=== PATIENT | female | born 1985 | race Caucasian/White ===

== ENCOUNTER 2022-10-29 17:30 | Observation (INO) | payer MEDICAID, SELFPAY ==
[2022-10-29] VITALS (55 sets, daily range): BP systolic 150–213; BP diastolic 98–143; PULSE 65–120; RESP 8–33; TEMP 36.5; O2SAT 94–100; BMI 28.3; BMI 30.4
--- NOTE | 2022-10-29 17:46 | ECG_ITS ---
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
--- NOTE | 2022-10-29 17:50 | ED.NECK1 ---
HPI - Neck Pain/Injury General Chief Complaint: Neck Pain/Injury Stated Complaint: NECK PAIN Time Seen by Provider: 10/29/22 17:35 Source: patient Mode of arrival: walk-in Limitations: no limitations History of Present Illness HPI Narrative: 37-year-old female presents for neck pain. She's had it for about two weeks and there was no injury or unusual activity. Her blood pressure has been running high and her dose of metoprolol has recently been increased. She was seen at another hospital's emergency department a few days ago for the neck pain and she states they gave her a shot of Toradol and discharged her. She reports they did not do any imaging. She has not had a fever or localized weakness. She has no history of neck injury in the past. The pain is moderate much worse when she moves it. Related Data Allergies Allergy/AdvReac Type Severity Reaction Status Date / Time codeine AdvReac Mild Rash Verified 10/29/22 17:41 Review of Systems ROS Narrative A ten point review of systems is negative except as noted above. Exam Narrative Exam Narrative: Nurses note and vital signs reviewed and patient is not hypoxic. General: The patient appears well and in no apparent distress. Skin: Warm, dry, no pallor noted. There is no rash noted. Head: Normocephalic, atraumatic; she is reluctant to turn her head, there is no mass or erythema or bruising in her neck Eye: Normal conjunctiva, no drainage Ears, Nose, Mouth, and Throat: oral mucosa is moist. Nares patent. Cardiovascular: Regular Rate and Rhythm Respiratory: Patient is in no distress, no accessory muscle use, lungs are clear to auscultation, no wheezing, rales or rhonchi Back: non-tender GI: soft and nontender Musculoskeletal: The patient has no evidence of calf tenderness, no pitting edema, symmetrical pulses noted bilaterally Neurological: A&O x4, normal speech; upper and lower extremity strength five out five and symmetric Psychiatric: Cooperative Constitutional Vital Signs, click to edit/add: Last Vital Signs Temp 97.7 F 10/29/22 17:36 Pulse 74 10/29/22 18:40 Resp 23 10/29/22 18:40 BP 169/100 H 10/29/22 18:43 Pulse Ox 100 10/29/22 18:40 O2 Del Method Room Air 10/29/22 17:36 Course Vital Signs Vital signs: Vital Signs Temperature 97.7 F 10/29/22 17:36 Pulse Rate 92 H 10/29/22 17:36 Respiratory Rate 18 10/29/22 17:36 Blood Pressure 179/116 H 10/29/22 17:36 Pulse Oximetry 100 10/29/22 17:36 Oxygen Delivery Method Room Air 10/29/22 17:36 Temperature 97.7 F 10/29/22 17:36 Pulse Rate 74 10/29/22 18:40 Respiratory Rate 23 10/29/22 18:40 Blood Pressure 169/100 H 10/29/22 18:43 Pulse Oximetry 100 10/29/22 18:40 Oxygen Delivery Method Room Air 10/29/22 17:36 MDM - Neck Pain/Injury MDM Narrative Medical decision making narrative: tests are ordered and the patient is signed out to Dr. Lopez. Differential Diagnosis Differential diagnosis: Likely torticollis, cervical spondylosis and strain of neck muscle Lab Data Labs: Lab Results 10/29/22 Range/Units 17:53 WBC 8.6 (4.0-11.0) 10^3/uL RBC 5.45 H (4.20-5.40) 10^6/uL Hgb 15.2 (12.0-16.0) g/dL Hct 46.3 (36.0-48.0) % MCV 85.0 (81.0-99.0) fL MCH 27.9 (26.7-34.0) pg MCHC 32.8 (29.9-35.2) g/dL RDW 14.6 (11.0-15.0) % Plt Count 268 (150-450) 10^3/uL MPV 10.7 (9.5-13.5) fL Neut % (Auto) 53.0 (43.0-75.0) % Lymph % (Auto) 38.1 (20.5-60.0) % [place] % (Auto) 5.5 (1.7-12.0) % Eos % (Auto) 2.5 (0.9-7.0) % Baso % (Auto) 0.5 (0.2-2.0) % Neut # (Auto) 4.5 (1.4-6.5) 10^3/uL Lymph # (Auto) 3.3 (1.2-3.8) 10^3/uL [place] # (Auto) 0.5 (0.3-0.8) 10^3/uL Eos # (Auto) 0.2 (0.0-0.7) 10^3/uL Baso # (Auto) 0.0 (0.0-0.1) 10^3/uL Abs Immat Gran (auto) 0.03 (0.00-0.03) 10^3/uL Imm/Tot Granulo (auto) 0.4 (0.0-0.5) % Sodium 139 (136-145) mmol/L Potassium 3.3 L (3.5-5.1) mmol/L Chloride 102 (98-107) mmol/L Carbon Dioxide 23.2 (21.0-32.0) mmol/L Anion Gap 17.1 BUN 10.0 (7.0-18.0) mg/dL Creatinine 0.76 (0.55-1.02) mg/dL Est GFR ( Amer) >60 (>=60) Est GFR (Non-Af Amer) >60 (>=60) BUN/Creatinine Ratio 13.2 Glucose 98 (74-106) mg/dL Calcium 9.1 (8.5-10.1) mg/dL ECG Data Attestation: I personally reviewed and interpreted this ECG as follows: (EKG on my interpretation shows normal sinus rhythm without acute change in a rate of 87.) Discharge Plan Discharge Chief Complaint: Neck Pain/Injury Clinical Impression: Acute neck pain Patient Disposition: Still a Patient Referrals: Physician,Non-Staff, MD [Primary Care Provider] - 1 week
[2022-10-29] MEDS: KETOROLAC TROMETHAMINE 30 MG/ML VIAL IVP (18:04)
[2022-10-29] MEDS: ORPHENADRINE 60 MG/ 2 ML VIAL IV (18:04)
[2022-10-29 18:14] LABS: Basophils Percent Auto 0.5 % (0.2-2.0); Eosinophils Absolute Auto 0.2 10^3/uL (0.0-0.7); Eosinophils Percent Auto 2.5 % (0.9-7.0); Hematocrit 46.3 % (36.0-48.0); Hemoglobin 15.2 g/dL (12.0-16.0); Immature Granulocytes Abs Auto 0.03 10^3/uL (0.00-0.03); Immature Granulocytes Pct Auto 0.4 % (0.0-0.5); Lymphocytes Absolute Auto 3.3 10^3/uL (1.2-3.8); Lymphocytes Percent Auto 38.1 % (20.5-60.0); Mean Corpuscular HGB Conc 32.8 g/dL (29.9-35.2); Mean Corpuscular Hemoglobin 27.9 pg (26.7-34.0); Mean Platelet Volume 10.7 fL (9.5-13.5); Monocytes Absolute Auto 0.5 10^3/uL (0.3-0.8); Monocytes Percent Auto 5.5 % (1.7-12.0); Neutrophils Absolute Auto 4.5 10^3/uL (1.4-6.5); Platelet Count 268 10^3/uL (150-450); Red Blood Count 5.45 10^6/uL (4.20-5.40); Red Cell Distribution Width 14.6 % (11.0-15.0); White Blood Count 8.6 10^3/uL (4.0-11.0)
[2022-10-29 18:26] LABS: Anion Gap 17.1; BUN Creatinine Ratio 13.2; Calcium 9.1 mg/dL (8.5-10.1); Carbon Dioxide 23.2 mmol/L (21.0-32.0); Chloride 102 mmol/L (98-107); Estimated GFR (African America >60 (>=60); Estimated GFR (Non-African Ame >60 (>=60); Glucose 98 mg/dL (74-106); Potassium 3.3 mmol/L (3.5-5.1); Sodium 139 mmol/L (136-145)
--- NOTE | 2022-10-29 18:53 | XR_ITS ---
The [place] [id number] Patient Name: KYRIE OCONNOR MRN: [id number] date: 1985 Sex: F Assigned Patient Location: ER Current Patient Location: ER Accession/Order Number: [id number] Exam Date: 10/29/2022 19:15 Report Date: 10/29/2022 19:50 At the request of: STEPHON REYES Procedure: XR cervical spine 2-3V EXAM: XR cervical spine 2-3V HISTORY: Atraumatic pain COMPARISON: None. TECHNIQUE: 3 views FINDINGS: IMPRESSION: Straightening of the normal cervical lordosis. Vertebral body heights and alignments exhibit no fracture or listhesis. Intervertebral disc spaces, endplates and uncovertebral joints are unremarkable for patient's age. No gross facet arthrosis. The dens and lateral masses of C1 are symmetric. No prevertebral soft tissue edema. Electronically authenticated by: CHRISTIAN MCNALLY Date: 10/29/2022 19:50
[2022-10-29] MEDS: MORPHINE SULFATE 4 MG/ML VIAL IV ×2 (18:56→20:06)
--- NOTE | 2022-10-29 19:55 | CT_ITS ---
The [address] [address] Patient Name: KYRIE OCONNOR MRN: [id number] date: 1985 Sex: F Assigned Patient Location: ER Current Patient Location: ER Accession/Order Number: [id number] Exam Date: 10/29/2022 22:23 Report Date: 10/29/2022 21:36 At the request of: MARCY WADDELL Procedure: CT angio neck CT angio head, CT angio neck HISTORY: neck pain and headache TECHNIQUE: CTA head and neck. Post-processed images {Maximum intensity Projection (MIP), Volume-rendered (VR), or Surface shaded display images (SSD)} were created, reviewed and archived. All CT scans at this facility use dose modulation, iterative reconstruction, and/or weight based dosing when appropriate to reduce radiation dose to as low as reasonably achievable. Contrast: IV administration of 100 cc Omnipaque 350 COMPARISON: CT brain 10/23/2022 RESULT: NECK: Soft tissues: Within normal limits. Spine: Alignment is normal. No significant degenerative changes are present. Lungs: The imaged lungs are clear. CT ARTERIOGRAM: EXTRACRANIAL CIRCULATION: Aortic arch and branch vessels: Conventional 3-vessel arch branch anatomy. No significant stenosis in the proximal brachiocephalic vessels. Carotid Stenosis: Right Common: No significant stenosis. Right Internal Carotid Plaque: No significant plaque formation. Right Internal Carotid Stenosis (% by NASCET Criteria): 0% Left Common: No significant stenosis. Left Internal Carotid Plaque: No significant plaque formation. Left Internal Carotid Stenosis (% by NASCET Criteria): 0% Cervical Vertebral Arteries: Patency: Bilateral Dominance: Codominant INTRACRANIAL CIRCULATION: Anterior circulation: Distal ICAs, ACAs and MCAs are normal in caliber. A1 segments are codominant. Posterior circulation: Distal vertebral arteries, basilar trunk and rn building are normal in caliber. Proximal SCAs, AICAs and PICAs are patent. No vessel cut off, filling defect, significant focal narrowing or evidence of aneurysm. Opacified dural venous sinuses and major deep and superficial draining veins are patent. CT/CT angio neck IMPRESSION: No large vessel occlusion or high-grade stenosis in the head or neck. Electronically authenticated by: MAN MENESES Date: 10/29/2022 21:36
--- NOTE | 2022-10-29 19:55 | CT_ITS ---
The [address] [address] Patient Name: KYRIE OCONNOR MRN: [id number] date: 1985 Sex: F Assigned Patient Location: ER Current Patient Location: ER Accession/Order Number: [id number] Exam Date: 10/29/2022 22:23 Report Date: 10/29/2022 21:36 At the request of: MARCY WADDELL Procedure: CT angio head CT angio head, CT angio neck HISTORY: neck pain and headache TECHNIQUE: CTA head and neck. Post-processed images {Maximum intensity Projection (MIP), Volume-rendered (VR), or Surface shaded display images (SSD)} were created, reviewed and archived. All CT scans at this facility use dose modulation, iterative reconstruction, and/or weight based dosing when appropriate to reduce radiation dose to as low as reasonably achievable. Contrast: IV administration of 100 cc Omnipaque 350 COMPARISON: CT brain 10/23/2022 RESULT: NECK: Soft tissues: Within normal limits. Spine: Alignment is normal. No significant degenerative changes are present. Lungs: The imaged lungs are clear. CT ARTERIOGRAM: EXTRACRANIAL CIRCULATION: Aortic arch and branch vessels: Conventional 3-vessel arch branch anatomy. No significant stenosis in the proximal brachiocephalic vessels. Carotid Stenosis: Right Common: No significant stenosis. Right Internal Carotid Plaque: No significant plaque formation. Right Internal Carotid Stenosis (% by NASCET Criteria): 0% Left Common: No significant stenosis. Left Internal Carotid Plaque: No significant plaque formation. Left Internal Carotid Stenosis (% by NASCET Criteria): 0% Cervical Vertebral Arteries: Patency: Bilateral Dominance: Codominant INTRACRANIAL CIRCULATION: Anterior circulation: Distal ICAs, ACAs and MCAs are normal in caliber. A1 segments are codominant. Posterior circulation: Distal vertebral arteries, basilar trunk and solar electric/photovoltaic installer are normal in caliber. Proximal SCAs, AICAs and PICAs are patent. No vessel cut off, filling defect, significant focal narrowing or evidence of aneurysm. Opacified dural venous sinuses and major deep and superficial draining veins are patent. CT/CT angio head IMPRESSION: No large vessel occlusion or high-grade stenosis in the head or neck. Electronically authenticated by: MAN MENESES Date: 10/29/2022 21:36
[2022-10-29] MEDS: METHYLPREDNISOLONE SOD SUCC PF 125 MG/2 ML VIAL IVP (20:06)
[2022-10-29] MEDS: HYDRALAZINE HCL 20 MG/ML VIAL 5 MG IVP ×2 (20:46→21:30)
[2022-10-29] MEDS: HYDROMORPHONE HCL 1 MG/ML CARTRIDGE 0.5 MG IVP (21:36)
[2022-10-29] MEDS: HYDROMORPHONE HCL 1 MG/ML CARTRIDGE IVP (23:13)
--- NOTE | 2022-10-29 23:22 | PC.NURSE ---
pt has no neuro deficits at this time. complains of left sided neck pain and hypertension.
[2022-10-29] MEDS: ASPIRIN 325 MG TABLET PO (23:41)
[2022-10-29] MEDS: CLOPIDOGREL BISULFATE 75 MG TABLET 300 MG PO (23:41)
[2022-10-30] VITALS (129 sets, daily range): BP systolic 120–189; BP diastolic 63–118; PULSE 76–130; RESP 2–28; TEMP 36.5–36.8; O2SAT 95–99
[2022-10-30] MEDS: LABETALOL HCL 20 MG/4 ML SYRINGE 10 MG IV (01:51)
--- NOTE | 2022-10-30 02:59 | W.PM.TELEPN ---
Progress Note: Subjective Subjective Interval history: CC: Left neck pain HPI: 37 year old female with history of migraine headaches, poorly controlled hypertension, who presents with 10 days of left sided neck pain. pain is constant, pressure in nature radiates to her occipitis region associated with nausea, occasional blurry vision, mild relief with Tylenol, ibuprofen. no previous episodes and started while she was sitting at work. her BP was checked and noted to be 226/118 and was sent home. she followed up with PCP and Lopressor increased to 100 mg BID with continued elevated BP and persistent symptoms so came to the ER for evaluation. ER Course: patient received IV Hydralazine, Morphine Dilaudid. Neurology consulted recommended MRA to better evaluate inconclusive CTA results of possible vertebral artery dissection. Allergies: NKDA Home medications: reviewed and reconciled in chart PMHx: HELLP syndrome, Hypertension, Migraines PSHx: None per patient FHx: Sister with unknown autoimmune disease SHx: denies alcohol, drug use, occasional Vape. with children ROS: negative except for HPI. PE: Vitals reviewed GEN: sitting up in bed, holding left neck with hand, in mild acute distress, appears Stated age HEENT: Normocephalic, atraumatic, EOMI, complains of neck pain with turning head to side CVS: RRR, No edema Lungs: normal respiratory effort GI: Soft, no visible masses Neuro: CN 2-12 intact, No focal deficits Psych: Good mood. Exam Constitutional Vital Signs, click to edit/add: Last Vital Signs Temp 97.7 F 10/30/22 00:05 Pulse 99 H 10/30/22 02:20 Resp 13 10/30/22 01:03 BP 157/101 H 10/30/22 01:57 Pulse Ox 97 10/30/22 00:06 O2 Del Method Room Air 10/30/22 00:06 Progress Note: Objective Labs Labs: Short CBC 10/29/22 Range/Units 17:53 WBC 8.6 (4.0-11.0) 10^3/uL Hgb 15.2 (12.0-16.0) g/dL Hct 46.3 (36.0-48.0) % Plt Count 268 (150-450) 10^3/uL BMP 10/29/22 17:53 Sodium 139 Potassium 3.3 L Chloride 102 Carbon Dioxide 23.2 BUN 10.0 Creatinine 0.76 Glucose 98 Calcium 9.1 Progress Note: A&P Assessment and Plan (1) Acute neck pain: (2) Accelerated hypertension: Plan 1. Intractable left neck pain rule out vertebral artery dissection 2. Accelerated hypertension 3. Migraine headaches - admit to telemetry, neuro checks - order home metoprolol with p.r.n. labetalol, start Norvasc, defer secondary hypertension workup morning team - neurology consulted in the ER reviewed CT scans and suggest MRA head and neck, aspirin Plavix for now and keep systolic BP below 180 - pain control DVT prophylaxis goals of care: Full code communications: Discussed with emergency room physician, bedside nurse, patient updated about plan of care, all questions answered to their satisfaction disposition: Home when medically stable as a provider of this telehealth evaluation, requested by the patient's evaluating physician, I attest that I introduced myself to the patient, provided my credentials and determined that telemedicine via a real-time 2 weight interactive audio and video platform as an appropriate and effective means of providing this service. I reviewed the patient's chart and had a discussion with the member of the patient's treatment team. The patient and I mutually agreed with continuation of this evaluation via telemedicine. The patient consented for the telemedicine evaluation. The nurse was present during the entire time of the encounter and was able to move the stethoscope in appropriate directions. The patient was evaluated at 0020 Telemedicine Attestation Telemedicine Attestation I conducted this encounter from [[place], [place]] via secure live, [id number] video conference with the patient, located at [facility] with [nursing team]. Prior to the interview, the risks and benefits of telemedicine were discussed with the patient and verbal consent was obtained.
[2022-10-30] MEDS: HEPARIN SODIUM (PORCINE) 5,000 UNIT/ML VIAL 5000 UNIT SUBQ ×3 (03:31→20:54)
[2022-10-30] MEDS: HYDROMORPHONE HCL 0.5 MG/0.5 ML SYRINGE IV ×6 (03:32→22:24)
[2022-10-30] MEDS: AMLODIPINE BESYLATE 5 MG TABLET 2.5 MG PO (04:27)
--- NOTE | 2022-10-30 06:54 | MR_ITS ---
The [address] [address] Patient Name: KYRIE OCONNOR MRN: [id number] date: 1985 Sex: F Assigned Patient Location: ICU Current Patient Location: ICU Accession/Order Number: [id number] Exam Date: 10/30/2022 08:05 Report Date: 10/30/2022 09:43 At the request of: SHAIKH LARRY Procedure: MR angio head wo con EXAM: MRA of the head and neck without IV gadolinium contrast. NASCET criteria were used when evaluating of the carotid arteries. Dose reduction technique used: Automated exposure control and/or adjustment of the mA and/or kV according to patient size and/or use of iterative reconstruction technique. REASON FOR EXAM: VERTEBRAL ARTERY DISSECTION COMPARISON: CT scan dated 10/29/2022 FINDINGS: Motion artifact degrades image quality and reduces sensitivity of the exam. MRA HEAD: No definite large vessel occlusion. Exam is otherwise limited by motion artifact. MRA NECK: Caliber irregularities in the vertebral arteries bilaterally at the C1 level seen on yesterday's CT angiogram are not well visualized on the current MR angiogram, although the current exam is degraded by motion artifact and these were better evaluated on yesterday's MRI. On the prior exam there are relatively symmetric abnormalities and no focal dissection flap visible. Bilateral vertebral, bilateral common carotid and bilateral internal carotid arteries are grossly patent without significant stenosis or aneurysm. Remainder unremarkable. MR/MR angio head wo con IMPRESSION: 1. Exam is limited by motion artifact. 2. Caliber irregularities of the vertebral arteries bilaterally at the C1 level. These are better evaluated on yesterday's CT angiogram. On the prior CT angiogram these were relatively symmetric and no discrete dissection flap is evident. Considerations include dissections are favored to be chronic versus is a congenital variant or changes of fibromuscular dysplasia. 3. No definite intracranial large vessel occlusion. Electronically authenticated by: JOSE TELLO Date: 10/30/2022 09:43
--- NOTE | 2022-10-30 06:54 | MR_ITS ---
The [address] [address] Patient Name: KYRIE OCONNOR MRN: [id number] date: 1985 Sex: F Assigned Patient Location: ICU Current Patient Location: ICU Accession/Order Number: [id number] Exam Date: 10/30/2022 08:05 Report Date: 10/30/2022 09:43 At the request of: SHAIKH LARRY Procedure: MR angio neck wo con EXAM: MRA of the head and neck without IV gadolinium contrast. NASCET criteria were used when evaluating of the carotid arteries. Dose reduction technique used: Automated exposure control and/or adjustment of the mA and/or kV according to patient size and/or use of iterative reconstruction technique. REASON FOR EXAM: VERTEBRAL ARTERY DISSECTION COMPARISON: CT scan dated 10/29/2022 FINDINGS: Motion artifact degrades image quality and reduces sensitivity of the exam. MRA HEAD: No definite large vessel occlusion. Exam is otherwise limited by motion artifact. MRA NECK: Caliber irregularities in the vertebral arteries bilaterally at the C1 level seen on yesterday's CT angiogram are not well visualized on the current MR angiogram, although the current exam is degraded by motion artifact and these were better evaluated on yesterday's MRI. On the prior exam there are relatively symmetric abnormalities and no focal dissection flap visible. Bilateral vertebral, bilateral common carotid and bilateral internal carotid arteries are grossly patent without significant stenosis or aneurysm. Remainder unremarkable. MR/MR angio neck wo con IMPRESSION: 1. Exam is limited by motion artifact. 2. Caliber irregularities of the vertebral arteries bilaterally at the C1 level. These are better evaluated on yesterday's CT angiogram. On the prior CT angiogram these were relatively symmetric and no discrete dissection flap is evident. Considerations include dissections are favored to be chronic versus is a congenital variant or changes of fibromuscular dysplasia. 3. No definite intracranial large vessel occlusion. Electronically authenticated by: JOSE TELLO Date: 10/30/2022 09:43
[2022-10-30] MEDS: MORPHINE SULFATE 2 MG/ML SYRINGE IV ×2 (07:33→11:29)
[2022-10-30] MEDS: HYDRALAZINE HCL 20 MG/ML VIAL 10 MG IVP (07:33)
[2022-10-30] MEDS: OXYCODONE HCL 5 MG TABLET PO ×4 (07:33→23:33)
[2022-10-30] MEDS: IBUPROFEN 600 MG TABLET PO ×2 (09:17→20:55)
[2022-10-30] MEDS: METOPROLOL TARTRATE 100 MG TABLET PO ×2 (09:17→20:55)
[2022-10-30] MEDS: AMLODIPINE BESYLATE 5 MG TABLET 10 MG PO (09:17)
[2022-10-30] MEDS: OMEPRAZOLE 40 MG CAPSULE.DR PO (09:17)
[2022-10-30] MEDS: ONDANSETRON PF 4 MG/2 ML VIAL IV (09:18)
--- NOTE | 2022-10-30 11:09 | P.HP_ITS ---
H&P: HPI History of Present Illness Chief complaint: Intractable neck pain Narrative: 37 y o female with hx of HTN presented last night with severe intractable neck pain that has been going on for over a week now. She reports being at work about a week ago and was sent home for accelerated hypertension (220/120) and nausea/vomiting that was sudden onset and without any preceding signs or symptoms. She woke up next morning with cervical neck that is persistent, severe 10/10, and even the slightest movement of her neck - exacerbates her pain. She denies prior hx of neck pain, trauma or neck surgery. She has hx of intermittent migraine LEA but her current neck pain is nothing like she has ever experienced in her life. She went to ED at [facility] and was discharged after XR of her neck and treatment with toradol and was asked to f/u with her PCP who increased her Lopressor for poorly controlled HTN when seen in office. Over past one week - she has noted her blood pressure has been fluctuating but usually above 200 and she has experienced intermittent tingling in her fingers b/l along with blurred vision. She currently has no neurological symptoms. SHe is in severe pain, and keeping her neck still to avoid experiencing any worsening of her already poorly controlled pain. Review of Systems ROS Status of ROS 10 or more systems reviewed and unremarkable except as noted in history and below [facility] Medical History (Updated 10/30/22 @ 11:19 by Shaikh Oscar MD) Surgical History Family History Grandmother Family history of cancer Father Family history of diabetes mellitus Other Family history of stroke Social History Within the past year, how often did you have a drink containing alcohol: monthly or less Smoking status: Current every day smoker What tobacco products do you use: cigarettes Pack-years instructions: Please document either packs per day or cigarettes per day in order for pack years to calculate correctly. If using both packs per day and cigarettes per day, please make sure that they denote the same thing. If they differ, pack- years will calculate based on packs per day. Packs Per Day Cigarettes Per Day 1/4 of a pack 5 1/2 a pack 10 3/4 of a pack 15 1 pack 20 1.5 pack 30 2 packs 40 2.5 packs 50 3 packs 60 Cigarettes per day: 8 Do you use any of these nicotine containing products: vaping products Non-prescribed substance use: denies use Previous occupational history: [employer] Highest level of school completed/degree received: high school graduate Are you now , , , , never or living with a partner: Meds Home Medications and Allergies Home Medications Medication Instructions Recorded Confirmed Type lidocaine 5 % topical patch 1 patch topical Q24H 10/29/22 10/29/22 History metoprolol tartrate 100 mg tablet 100 mg PO BID 10/29/22 10/29/22 History omeprazole 40 mg capsule,delayed 40 mg PO DAILY 10/29/22 10/29/22 History release rizatriptan 10 mg tablet 10 mg PO Q2H PRN migraine headache 10/29/22 10/29/22 History venlafaxine 37.5 mg 75 mg PO DAILY 10/29/22 10/29/22 History capsule,extended release 24 hr Allergies Allergy/AdvReac Type Severity Reaction Status Date / Time codeine AdvReac Mild Rash Verified 10/29/22 17:41 Exam Constitutional Vital Signs, click to edit/add: Last Vital Signs Temp 97.7 F 10/30/22 00:05 Pulse 112 H 10/30/22 10:00 Resp 16 10/30/22 07:43 BP 172/96 H 10/30/22 07:45 Pulse Ox 95 10/30/22 07:50 O2 Del Method Room Air 10/30/22 04:29 Documenting provider has reviewed patient's vital signs: yes Common normals: oriented x3 General appearance: cooperative and in distress [facility] Common normals: normocephalic and head/scalp atraumatic Head and scalp: normocephalic and atraumatic Eye Common normals: conjunctivae normal and no scleral icterus Conjunctiva: conjunctiva(e) normal Neck & C-Spine General: normal visual inspection Cervical spine: cervical ROM abnormal lateral flexion to the right decreased, lateral flexion to the left decreased, rotation to the left decreased, rotation to the right decreased and anterior flexion decreased and pain with cervical ROM with lateral flexion to the right, with lateral flexion to the left, with rotation to the right, with rotation to the left, with anterior flexion and with extension Respiratory Common normals: normal respiratory effort and clear to auscultation bilaterally Effort & inspection: able to speak in complete sentences Auscultation: clear to auscultation bilaterally Cardio Common normals: regular rate, S1 normal heart sound and S2 normal heart sound Rate: regular rate Heart sounds: S1 normal and S2 normal GI Common normals: Normal to inspection, nondistended, normoactive bowel sounds present, soft to palpation, non-tender and no hepatosplenomegaly Palpation: soft and no hepatosplenomegaly Extremity Common normals: no clubbing, cyanosis or edema Neuro Common normals: oriented x3, moves all extremities and no focal motor deficits Meningeal signs: nuccal rigidity Speech: speech normal Gait (neuro): normal gait Motor exam: strength 5/5 throughout Psych Common normals: mental status grossly normal, denies hallucinations, denies homicidal ideation and denies suicidal ideation Results Labs Labs: Short CBC 10/29/22 Range/Units 17:53 WBC 8.6 (4.0-11.0) 10^3/uL Hgb 15.2 (12.0-16.0) g/dL Hct 46.3 (36.0-48.0) % Plt Count 268 (150-450) 10^3/uL BMP 10/29/22 17:53 Sodium 139 Potassium 3.3 L Chloride 102 Carbon Dioxide 23.2 BUN 10.0 Creatinine 0.76 Glucose 98 Calcium 9.1 Assessment and Plan Assessment and Plan (1) Hypertensive emergency: Assessment and Plan: P/w HTN emergency - BP still above goal after addition of amlodipine and losartan and she has required multiple IV hydralazine and labetalol boluses. Will start on IV cardene drip - Goal to keep BP less than 140/80 D/w Tele stroke. Neuro checks q2 CT head - no bleeding or evidence of stroke (2) Vertebral artery dissection: Assessment and Plan: Severe persistent neck pain with accelerated HTN - possible b/l vertebral artery dissection on CTA and then an MRA Awaiting final recommendations from tele stroke who will evaluate the patient after reviewing images. On ASA, Plavix as per stroke. C/w same Plan Patient changed to inpatient status as continues to have accelerated hypertension and will now be on continuous IV infusion to manage her BP. High level of care, with Q2 neuro checks, close hemodynamic monitoring while on IV Cardene. Critical care time spent over 60 minutes on this patient encounter that involved patients assessment, reviewing her medical hx and chart, co ordination of her care with more than 50% time spent on face 2 face evaluation.
--- NOTE | 2022-10-30 11:28 | CA_ITS ---
Patient: KYRIE OCONNOR Exam Date: 10/30/2022 : 1985 Gender:F Ordering : SHAIKH Michel JUAREZ . Admission #: [id number] Family : TOSHA GALEAS Order #: [id number] CLICK HERE TO VIEW EXAM ECHOCARDIOGRAM REPORT PROCEDURE: CA ECHO DOPPLER COMPLETE INDICATIONS: HTN emergency COMPARISON: None. DESCRIPTION: COMPLETE ECHOCARDIOGRAM Real-time transthoracic echocardiography with 2D, M-mode, spectral and color flow Doppler performed. QUALITY: Technical quality was good. LEFT VENTRICLE: Normal chamber size. Moderate concentric left ventricular hypertrophy. LV EF: Global left ventricular systolic function is hyperdynamic; visually estimated ejection fraction is 65 to 70%. No regional wall motion abnormalities. DIASTOLIC: Normal diastolic function. ATRIAL SEPTUM: Inadequately seen. LEFT ATRIUM: Normal chamber size. RIGHT ATRIUM: Normal chamber size. RIGHT VENTRICLE: Normal chamber size. Normal right ventricular systolic function. TRICUSPID VALVE: Normal mobility and thickness. No stenosis with trivial regurgitation. No evidence of pulmonary hypertension. RVSP 14mmHg MITRAL VALVE: Normal mobility and thickness. No evidence of mitral valve stenosis. There is no mitral annular calcification. No mitral regurgitation. AORTIC VALVE: Normal trileaflet appearance. No visible sclerosis. Normal leaflet mobility. No evidence of aortic valve stenosis. No aortic regurgitation. AORTIC ROOT: Normal diameter and appearance. PULMONIC VALVE: Normal thickness and mobility. No stenosis. No regurgitation. PERICARDIUM: No evidence of pericardial effusion. IVC: Collapses with inspirations. Normal size. CONCLUSION: 1. Global left ventricular systolic function is hyperdynamic; visually estimated ejection fraction 65 to 70% 2. Moderately increased left ventricular wall thickness 3. The right ventricle is normal in size and systolic function 4. No significant valvular abnormalities Adult Echocardiography Procedure Report Left Ventricle LVEDD (3.7 - 5.6 cm): 4.27 cm LVESD (2.2 - 4.0 cm): 2.62 cm LVIVS thickness (0.6 - 1.2 cm): 1.37 cm LVPW thickness (0.5 - 1.0 cm): 1.21 cm e': 0.11 m/s E - e': 8.84 LVOT Max Gradient: 7.03 mm[Hg], 6.61 mm[Hg] LVOT Area (cm2): 1.31 m/s Peak Velocity (LVOT): 1.33 m/s, 1.29 m/s Mean Velocity (LVOT): 0.95 m/s LVOT Diameter 1.89 cm Left Ventricular Ejection Fraction: 70.68 % Left Atrium LA Volume Index (2D A2C): 34.70 ml/m2 Left Atrium Systolic Dimension: 3.45 cm Mitral Valve MV E to A Ratio: 0.91 Mitral Valve A-Wave Peak Velocity: 1.02 m/s Mitral Valve E-Wave Peak Velocity: 0.93 m/s Right Ventricle RV Internal Diastolic Dimension: 2.78 cm Aorta AO Root Diam: 2.75 cm Ascending Ao Diam: 2.56 cm Aortic Valve AoV Area (Peak Rojas): 2.11 cm2, 2.12 cm2, 2.11 cm2 AoV Area (VTI): 1.87 cm2, 1.87 cm2, 1.88 cm2 Peak Velocity(Antegrade Flow): 1.76 m/s, 1.72 m/s Peak Gradient(Antegrade Flow): 12.33 mm[Hg], 11.77 mm[Hg] Mean Velocity(Antegrade Flow): 1.25 m/s, 1.24 m/s Mean Gradient(Antegrade Flow): 7.13 mm[Hg], 7.04 mm[Hg] Velocity Time Integral: 34.22 cm, 33.24 cm Tricuspid Valve Peak Velocity (Regurgitant Flow): 1.63 m/s, 1.51 m/s Pulmonic Valve Mean Gradient: 3.56 mm[Hg], 2.97 mm[Hg], 2.93 mm[Hg] Mean Velocity: 0.90 m/s, 0.82 m/s, 0.79 m/s Peak Velocity: 1.13 m/s Peak Gradient: 5.31 mm[Hg], 4.74 mm[Hg], 5.31 mm[Hg] Right Atrium Right Atrium Systolic Pressure: 18.76 ml, 18.76 ml Dictated by: Elisabeth Simeon M.D. on 10/31/2022 at 16:44 Approved by: Elisabeth Simeon M.D. on 10/31/2022 at 16:47
[2022-10-30] MEDS: LOSARTAN POTASSIUM 50 MG TABLET 100 MG PO (11:29)
[2022-10-30] MEDS: NICARDIPINE IN NACL, ISO-OSM 40 MG/200 ML PIGGYBACK 25 MG IV (11:38)
--- NOTE | 2022-10-30 11:55 | CM.NOTE ---
Rounds made with Dr. Moore, he will speak with neurologist to determine plan of care for pt. Discussed with pt MRI results and treating BP.
[2022-10-30] MEDS: HYDROCHLOROTHIAZIDE 25 MG TABLET PO (16:43)
[2022-10-30] MEDS: NICARDIPINE IN NACL, ISO-OSM 40 MG/200 ML PIGGYBACK 37.5 MG IV (16:50)
[2022-10-30] MEDS: LORAZEPAM 0.5 MG TABLET PO (20:56)
[2022-10-30] MEDS: BACLOFEN 10 MG TABLET PO (22:23)
[2022-10-31] VITALS (52 sets, daily range): BP systolic 113–145; BP diastolic 70–90; PULSE 69–114; RESP 2–20; TEMP 36.6–36.9; O2SAT 94–97
[2022-10-31] MEDS: NICARDIPINE IN NACL, ISO-OSM 40 MG/200 ML PIGGYBACK 25 MG IV (00:28)
[2022-10-31] MEDS: OXYCODONE HCL 5 MG TABLET PO ×2 (03:56→08:42)
[2022-10-31] MEDS: HEPARIN SODIUM (PORCINE) 5,000 UNIT/ML VIAL 5000 UNIT SUBQ (04:09)
[2022-10-31] MEDS: LIDOCAINE 5% PATCH 1 PATCH TOPICAL (04:10)
[2022-10-31] MEDS: DOCUSATE SODIUM 100 MG CAPSULE PO (04:12)
[2022-10-31] MEDS: ONDANSETRON PF 4 MG/2 ML VIAL IV (05:17)
[2022-10-31] MEDS: HYDROMORPHONE HCL 0.5 MG/0.5 ML SYRINGE IV (05:17)
[2022-10-31] MEDS: BACLOFEN 10 MG TABLET PO (05:17)
[2022-10-31 05:36] LABS: Basophils Percent Auto 0.2 % (0.2-2.0); Eosinophils Absolute Auto 0.1 10^3/uL (0.0-0.7); Hematocrit 42.5 % (36.0-48.0); Immature Granulocytes Abs Auto 0.04 10^3/uL (0.00-0.03); Immature Granulocytes Pct Auto 0.4 % (0.0-0.5); Lymphocytes Percent Auto 28.6 % (20.5-60.0); Mean Corpuscular HGB Conc 32.9 g/dL (29.9-35.2); Mean Corpuscular Hemoglobin 28.5 pg (26.7-34.0); Mean Corpuscular Volume 86.4 fL (81.0-99.0); Mean Platelet Volume 10.6 fL (9.5-13.5); Monocytes Absolute Auto 0.7 10^3/uL (0.3-0.8); Monocytes Percent Auto 6.5 % (1.7-12.0); Neutrophils Absolute Auto 6.7 10^3/uL (1.4-6.5); Neutrophils Percent Auto 63.3 % (43.0-75.0); Platelet Count 234 10^3/uL (150-450); Red Blood Count 4.92 10^6/uL (4.20-5.40); Red Cell Distribution Width 15.4 % (11.0-15.0); White Blood Count 10.5 10^3/uL (4.0-11.0)
[2022-10-31 06:05] LABS: Alanine Aminotransferase 21 U/L (14-59); Albumin Globulin Ratio 1.4; Albumin Level 4.1 g/dL (3.4-5.0); Alkaline Phosphatase 58 U/L (46-116); Anion Gap 11.5; Aspartate Amino Transferase 6 U/L (15-37); BUN Creatinine Ratio 18.4; Bilirubin Total 0.4 mg/dL (0.2-1.0); Calcium 8.9 mg/dL (8.5-10.1); Carbon Dioxide 26.7 mmol/L (21.0-32.0); Chloride 101 mmol/L (98-107); Estimated GFR (African America >60 (>=60); Estimated GFR (Non-African Ame >60 (>=60); Glucose 103 mg/dL (74-106); Potassium 3.2 mmol/L (3.5-5.1); Sodium 136 mmol/L (136-145); Total Protein 7.1 g/dL (6.4-8.2)
[2022-10-31] MEDS: POTASSIUM CHLORIDE 10 MEQ ER TABLET 40 MEQ PO (08:33)
[2022-10-31] MEDS: AMLODIPINE BESYLATE 5 MG TABLET 10 MG PO (08:34)
[2022-10-31] MEDS: OMEPRAZOLE 40 MG CAPSULE.DR PO (08:34)
[2022-10-31] MEDS: HYDROCHLOROTHIAZIDE 25 MG TABLET PO (08:34)
[2022-10-31] MEDS: METOPROLOL TARTRATE 100 MG TABLET PO (08:34)
[2022-10-31] MEDS: LOSARTAN POTASSIUM 50 MG TABLET 100 MG PO (08:35)
[2022-10-31] MEDS: IBUPROFEN 600 MG TABLET PO (08:43)
--- NOTE | 2022-10-31 10:35 | P.DS_ITS ---
DS: Providers Provider Date of admission: 10/30/22 10:30 Primary care physician: Non-Staff Physician, Consults: 10/30/22 06:56 Consult to Telestroke Routine Consulting Provider: QUIRINO CRABTREE Reason for consultation: Vertebral artery dissection Has provider been notified: No Attending physician on discharge: Shaikh Oscar Discharging clinician: Shaikh Oscar DS: Diagnosis Discharge Diagnosis (1) Hypertensive emergency: Assessment and plan: P/w malignant HTN. Required ICU admission and IV cardene drip. Cardene switched off earlier today BP is reasonably controlled on current oral medication. Patient asked to maintain Home BP log - bring her BP log to her PCP when she follows up as outpatient. Will d/c on Norvasc 10, Losartan 100, HCTZ 25 mg daily and Lopressor 100 q12. No sig cardaic structural abnormality on 2 ECHO (2) Vertebral artery dissection: Assessment and plan: Suspected to have vertebral artery dissection on CTA head/neck. MRA head/neck ordered for better evaluation. Ruled out to have any vascular anomaloy/pathology by Tele stroke. No f/u needed by vascular neurology and no need to be on DAPT. (3) Acute neck pain: Assessment and plan: P/w acute, intractable neck pain. Initially suspected to be from Vertebral artery dissection but ruled out. Patient's neck improved once her blood pressure improved. DS: Summary Hospital Course Hospital Course: 37 y o female with hx of HTN presented with severe intractable neck pain for one week and was admitted for htn emergency with possible vertebral artery dissection. W/u included CT head, CTA head/neck, MRA head/neck and after consul tation and review of vascular images by Stroke Neurology - no evidence/concern for vertebral artery dissection and hence no need for ASA, PLAVIX. Patient's neck pain improved once her Blood pressure was better controlled for which she required IV cardene drip and remained on it until this morning. She was started on oral antihypertensives and her BP is consistently below 140/90 She was asked to maintain Home BP log, and f/u with her PCP who can then adjust her meds based on home BP log. Patient stable for d/c. Instructed to come to ED for eval if her BP is poorly controlled, she develops new or worsening neurological symptoms. Status at Discharge Functional status at discharge: independent ambulation Overall status at discharge: patient is back to baseline Time Spent with Patient Time attestation: Total time spent providing and/or coordinating discharge services: Time spent: greater than 30 minutes Exam Constitutional Vital Signs, click to edit/add: Last Vital Signs Temp 98.4 F 10/31/22 07:48 Pulse 89 10/31/22 09:56 Resp 16 10/31/22 07:48 BP 138/80 10/31/22 07:48 Pulse Ox 96 10/31/22 09:56 O2 Del Method Room Air 10/31/22 07:48 Documenting provider has reviewed patient's vital signs: yes Common normals: no apparent distress and oriented x3 General appearance: cooperative HENMT Common normals: normocephalic and head/scalp atraumatic Head and scalp: normocephalic and atraumatic Eye Common normals: conjunctivae normal and no scleral icterus Conjunctiva: conjunctiva(e) normal Neck & C-Spine General: normal visual inspection Cervical spine: cervical ROM abnormal lateral flexion to the right decreased, lateral flexion to the left decreased, rotation to the left decreased, rotation to the right decreased and anterior flexion decreased and pain with cervical ROM with lateral flexion to the right, with lateral flexion to the left, with rotation to the right, with rotation to the left, with anterior flexion and with extension Other: Pain and ROM is improved sig from before Respiratory Common normals: normal respiratory effort and clear to auscultation bilaterally Effort & inspection: able to speak in complete sentences Auscultation: clear to auscultation bilaterally Cardio Common normals: regular rate, S1 normal heart sound and S2 normal heart sound Rate: regular rate Heart sounds: S1 normal and S2 normal GI Common normals: Normal to inspection, nondistended, normoactive bowel sounds present, soft to palpation, non-tender and no hepatosplenomegaly Palpation: soft and no hepatosplenomegaly Extremity Common normals: no clubbing, cyanosis or edema Neuro Common normals: oriented x3, moves all extremities and no focal motor deficits Speech: speech normal Gait (neuro): normal gait Motor exam: strength 5/5 throughout Psych Common normals: mental status grossly normal, denies hallucinations, denies homicidal ideation and denies suicidal ideation DS: Data Data Completed and Pending Labs on day of discharge: Labs from last 24 hours 10/31/22 05:15 WBC 10.5 RBC 4.92 Hgb 14.0 Hct 42.5 MCV 86.4 MCH 28.5 MCHC 32.9 RDW 15.4 H Plt Count 234 MPV 10.6 Neut % (Auto) 63.3 Lymph % (Auto) 28.6 Mcduffie % (Auto) 6.5 Eos % (Auto) 1.0 Baso % (Auto) 0.2 Neut # (Auto) 6.7 H Lymph # (Auto) 3.0 Mcduffie # (Auto) 0.7 Eos # (Auto) 0.1 Baso # (Auto) 0.0 Abs Immat Gran (auto) 0.04 H Imm/Tot Granulo (auto) 0.4 Sodium 136 Potassium 3.2 L Chloride 101 Carbon Dioxide 26.7 Anion Gap 11.5 BUN 9.0 Creatinine 0.49 L Est GFR ( Amer) >60 Est GFR (Non-Af Amer) >60 BUN/Creatinine Ratio 18.4 Glucose 103 Calcium 8.9 Total Bilirubin 0.4 AST 6 L ALT 21 Alkaline Phosphatase 58 Total Protein 7.1 Albumin 4.1 Globulin 3.0 Albumin/Globulin Ratio 1.4 Discharge Plan Discharge Disposition: Home, Self-Care Discharge Medications: New losartan 100 mg tablet 100 mg PO DAILY Qty: 30 0RF hydrochlorothiazide 25 mg tablet 25 mg PO DAILY Qty: 30 0RF amlodipine 10 mg tablet 10 mg PO DAILY Qty: 30 0RF potassium chloride 20 mEq tablet extended release 20 meq PO DAILY Qty: 30 0RF baclofen 10 mg tablet 10 mg PO Q8H Qty: 60 0RF Continued lidocaine 5 % adhesive patch,medicated 1 patch topical Q24H omeprazole 40 mg capsule,delayed release(DR/EC) 40 mg PO DAILY metoprolol tartrate 100 mg tablet 100 mg PO BID lorazepam [Ativan] 0.5 mg tablet 0.5 mg PO DAILY PRN (Reason: anxiety) Discontinued rizatriptan 10 mg tablet 10 mg PO Q2H PRN (Reason: migraine headache) Activity: resume usual activities as tolerated Diet: advance to your usual diet Forms: Portal Instructions Follow Up Appointments: PCP in 1-2 weeks
--- NOTE | 2022-10-31 11:38 | CM.NOTE ---
Rounds made with cristofer Romero to discharge to home today. No discharge needs identified.
[2022-11-03 02:06] LABS: Aldosterone LCMS, Serum 4.2 ng/dL (0.0-30.0)
[2022-11-03 20:10] LABS: Metanephrine, Pl 18.7 pg/mL (0.0-88.0); Normetanephrine, Pl 89.8 pg/mL (0.0-210.1)
--- NOTE | 2022-11-04 14:40 | CM.DCFOLLOWU ---
1st attempt follow up call made by Donnie Alfaro on 11/04/22, no answer at this time
--- NOTE | 2022-11-05 15:37 | CM.DCFOLLOWU ---
2nd attempt follow up call made by Donnie Alfaro on 11/05/22
[2022-11-06 15:08] LABS: Renin Activity, Plasma 2.672 ng/mL/hr (0.167-5.380)
--- NOTE | 2022-11-06 15:55 | CM.DCFOLLOWU ---
3rd discharge follow up call made by Donnie Alfaro, no answer at this time 3 attempts were made, no answer each time
== END 2022-10-31 11:49 | disposition home or self-care (01) | DRG 199 ==
LOC: ER 20:31 → ICU 10-30 00:11
PROVIDERS: Emergency Medicine; Admitting Provider Internal Medicine; Emergency Provider Internal Medicine; Visit Provider Internal Medicine
DX: I16.1 Hypertensive emergency (principal); M54.2 Cervicalgia; G43.909 Migraine, unspecified, not intractable, without status migrainosus; F17.210 Nicotine dependence, cigarettes, uncomplicated; Z79.899 Other long term (current) drug therapy
CPT/HCPCS: 36415; 70496; 70498; 70544; 70547; 72040; 80048; 80053; 82088; 84244; 85025; 93005; 93306; 96372; 96374; 96375; 96376; 99285; G0378; J1170; J2930; Q3014; Q9967